=== PATIENT | male | born 1975 | race Caucasian/White ===

== ENCOUNTER 2018-07-19 20:57 | Emergency (ER) | payer OTHER ==
[~2018-07-19] VITALS: Ht 180.3 cm; Wt 107.9 kg
[2018-07-19 21:06] VITALS: BP 152/94
[2018-07-19] MEDS ORDERED: HYDR-4383 PO (21:29)
[2018-07-19] MEDS ORDERED: AMOX500C2 PO (21:29)
== END 2018-07-19 21:37 | disposition home or self-care (01) ==
LOC: ER 20:57
DX: K08.89 Other specified disorders of teeth and supporting structures (principal); F17.210 Nicotine dependence, cigarettes, uncomplicated; Z88.6 Allergy status to analgesic agent
CPT/HCPCS: 99283

== ENCOUNTER 2018-08-06 02:38 | Emergency (ER) | payer OTHER ==
[~2018-08-06] VITALS: Ht 182.9 cm; Wt 89.8 kg
[~2018-08-06 02:38] MED LIST: AMOX500C2 PO; HYDR-4383 PO
[2018-08-06 02:44] VITALS: BP 141/95
[2018-08-06] MEDS ORDERED: CLIN150C8 PO (02:59)
== END 2018-08-06 03:12 | disposition home or self-care (01) ==
LOC: ER 02:39
DX: K04.7 Periapical abscess without sinus (principal); Z88.0 Allergy status to penicillin; Z88.6 Allergy status to analgesic agent; Z79.899 Other long term (current) drug therapy
CPT/HCPCS: 99283

== ENCOUNTER 2019-03-08 10:30 | Emergency (ER) | payer MEDICAID, OTHER ==
[~2019-03-08] VITALS: Ht 182.9 cm; Wt 105.7 kg
[~2019-03-08 10:30] MED LIST changes: -AMOX500C2 PO; +CLIN150C8 PO
[2019-03-08 10:35] VITALS: BP 128/81
== END 2019-03-08 13:10 | disposition left against medical advice (07) ==
LOC: ER 10:30
DX: K12.2 Cellulitis and abscess of mouth (principal); Z53.21 Procedure and treatment not carried out due to patient leaving prior to being seen by health care provider

== ENCOUNTER 2019-05-11 21:35 | Emergency (ER) | payer MEDICAID ==
[~2019-05-11] VITALS: Ht 180.3 cm; Wt 107.8 kg
[~2019-05-11 21:35] MED LIST changes: +CLIN-90 PO; +IBUP-1984 PO
[2019-05-11 22:32] LABS: BASOPHILS # (AUTO) 0.1 X10'3 (0-0.2); BASOPHILS % (AUTO) 0.8 % (0-1); EOSINOPHILS # (AUTO) 0.2 X10'3 (0-0.9); EOSINOPHILS % (AUTO) 3.2 % (0-6); HEMATOCRIT 46.8 % (42.0-52.0); HEMOGLOBIN 16.1 g/dl (14.0-17.9); LYMPHOCYTES # (AUTO) 1.4 X10'3 (1.1-4.8); LYMPHOCYTES % (AUTO) 18.7 % (21-51); MEAN CORPUSCULAR HEMOGLOBIN 29.3 PG (27.0-31.0); MEAN CORPUSCULAR HGB CONC 34.4 g/dL (33.0-36.5); MEAN CORPUSCULAR VOLUME 85.2 FL (78-98); MEAN PLATELET VOLUME 7.9 FL (7.4-10.4); MONOCYTES # (AUTO) 0.7 X10'3 (0-0.9); MONOCYTES % (AUTO) 9.3 % (2-12); PLATELET COUNT 279 X10'3 (140-440); RED BLOOD COUNT 5.49 X10'6 (4.70-6.10); WHITE BLOOD COUNT 7.4 X10'3 (4.5-11.0)
[2019-05-11 22:53] LABS: ALANINE AMINOTRANSFERASE 40 U/L (12-78); ALBUMIN 3.9 G/DL (3.4-5.0); ALBUMIN/GLOBULIN RATIO 1.1 (1.1-1.5); ALKALINE PHOSPHATASE 58 IU/L (46-116); ANION GAP 8 (8-16); ASPARTATE AMINO TRANSFERASE 23 U/L (10-37); BILIRUBIN,TOTAL 0.2 MG/DL (0.1-1.0); BLOOD UREA NITROGEN 11 MG/DL (7-18); BUN/CREATININE RATIO 10.7 (5.4-32.0); CALCIUM 8.4 MG/DL (8.5-10.1); CHLORIDE 104 MMOL/L (99-107); CREATININE 1.03 MG/DL (0.60-1.10); ETHANOL < 0.010 GM/DL (0.0-0.010); GLUCOSE 100 MG/DL (70-104); LIPASE 270 U/L (73-393); POTASSIUM 3.9 MMOL/L (3.5-5.1); SODIUM 140 MMOL/L (135-145); TOTAL CARBON DIOXIDE 27.7 MMOL/L (24-32); TOTAL PROTEIN 7.4 G/DL (6.4-8.2); eGFR 79 ML/MIN
[2019-05-11] MEDS ORDERED: normal saline 1000ML IV soln IVB ONE (22:55)
[2019-05-12] VITALS: BP 135/88
== END 2019-05-12 00:31 | disposition home or self-care (01) ==
LOC: ER 21:35
DX: R55 Syncope and collapse (principal); R56.9 Unspecified convulsions; F17.210 Nicotine dependence, cigarettes, uncomplicated; F10.99 Alcohol use, unspecified with unspecified alcohol-induced disorder; Z88.0 Allergy status to penicillin; Z88.6 Allergy status to analgesic agent; Z79.899 Other long term (current) drug therapy; Y90.9 Presence of alcohol in blood, level not specified
CPT/HCPCS: 36415; 70450; 80053; 80320; 83605; 83690; 85025; 93005; 99284; J7030